=== PATIENT | male | born 1970 | race Caucasian/White ===

== ENCOUNTER 2021-12-12 11:28 | Day surgery (SDC) | payer OTHER ==
[2021-12-12] MEDS ORDERED: Sodium Chloride 0.9% 10 ML FLUSH Syringe IJ ONE (11:29)
[2021-12-12] MEDS ORDERED: Depo-Medrol 40 MG/ML IM ONE (11:29)
[2021-12-12] MEDS ORDERED: Lactated Ringers 1,000 ML IV ONE (15:43)
[2021-12-12] MEDS ORDERED: DIPRIVAN 200 MG/20 ML IV ONE (15:58)
--- NOTE | 2021-12-12 16:50 | XRAY ---
Indication: Right L4-S1 transforaminal ELISA. Intraoperative fluoroscopy provided for 39 seconds. 4 digital spot image submitted for interpretation demonstrates posterior needle tips projecting over the right L4 and L5 nerve roots. Small amount of contrast injected for needle tip placement. Correlate with intraoperative findings/report.
--- NOTE | 2021-12-12 16:54 | XRAY ---
39 seconds fluoroscopy time in surgery for right L4-S1 transforaminal ELISA.
== END 2021-12-12 16:30 | disposition home or self-care (01) ==
LOC: SDC-PAIN 11:28
PROVIDERS: ATTEND Psychiatry & Neurology Pain Medicine
DX: M54.16 Radiculopathy, lumbar region (principal); Z79.899 Other long term (current) drug therapy
CPT/HCPCS: 64493; 64494; 72100; 77003; J1030; J2704; Q9966

== ENCOUNTER 2022-01-16 08:44 | Day surgery (SDC) | payer OTHER ==
[2022-01-16] MEDS ORDERED: Xylocaine 1% Vial 30 ML PF IJ ONE (08:45)
[2022-01-16] MEDS ORDERED: Decadron 4 MG INJ IV ONE (08:45)
[2022-01-16] MEDS ORDERED: DIPRIVAN 200 MG/20 ML IV ONE ×2 (10:07→10:18)
[2022-01-16] MEDS ORDERED: Lactated Ringers 1,000 ML IV ONE (10:36)
--- NOTE | 2022-01-16 12:09 | XRAY ---
Indication: Right piriformis muscle injection. Intraoperative fluoroscopy provided for 22 seconds. Single digital spot image submitted for interpretation demonstrates posterior needle tip projecting over the expected right piriformis muscle. Small amount of contrast injected for needle tip placement. Correlate with intraoperative findings/report.
--- NOTE | 2022-01-16 12:21 | XRAY ---
22 seconds fluoroscopy time in surgery for injection of the right piriformis muscle.
== END 2022-01-16 10:34 | disposition home or self-care (01) ==
LOC: SDC-PAIN 08:44
PROVIDERS: ATTEND Psychiatry & Neurology Pain Medicine
DX: M79.18 Myalgia, other site (principal); Z79.899 Other long term (current) drug therapy
CPT/HCPCS: 20552; 72020; 77002; J1100; J2001; J2704; Q9966

== ENCOUNTER 2022-02-13 12:35 | Day surgery (SDC) | payer OTHER ==
[2022-02-13] MEDS ORDERED: Sodium Chloride 0.9(Preservative Free) 10 ML IJ ONE (12:36)
[2022-02-13] MEDS ORDERED: Xylocaine 1% Vial 30 ML PF IJ ONE (12:36)
[2022-02-13] MEDS ORDERED: Decadron 4 MG INJ IV ONE (12:36)
[2022-02-13] MEDS ORDERED: Depo-Medrol 40 MG/ML IM ONE (12:36)
[2022-02-13] MEDS ORDERED: Lactated Ringers 1,000 ML IV ONE (15:26)
[2022-02-13] MEDS ORDERED: DIPRIVAN 200 MG/20 ML IV ONE ×2 (15:32→15:39)
--- NOTE | 2022-02-13 16:46 | XRAY ---
Indication: Right L4-S1 transforaminal ELISA. Intraoperative fluoroscopy provided for 29 seconds. 3 digital spot images submitted for interpretation demonstrates posterior needle tips projecting over the expected right L4 and L5 nerve roots. Small amount of contrast injected for needle tip placement. Correlate with intraoperative findings/report.
--- NOTE | 2022-02-13 17:01 | XRAY ---
18 seconds fluoroscopy time in surgery for injection of the right piriformis muscle.
--- NOTE | 2022-02-13 17:02 | XRAY ---
29 seconds fluoroscopy time in surgery for right L4-S1 transforaminal ELISA.
--- NOTE | 2022-02-13 20:01 | XRAY ---
Indication: Right piriformis injection. Intraoperative fluoroscopy provided for 18 seconds. Single digital spot image submitted for interpretation demonstrates posterior needle tip projecting over the expected right piriformis muscle. Small amount of contrast injected for needle tip placement. Correlate with intraoperative findings/report.
== END 2022-02-13 15:59 | disposition home or self-care (01) ==
LOC: SDC-PAIN 12:35
PROVIDERS: ATTEND Psychiatry & Neurology Pain Medicine
DX: M54.16 Radiculopathy, lumbar region (principal); M79.18 Myalgia, other site; Z79.899 Other long term (current) drug therapy
CPT/HCPCS: 20552; 64483; 64484; 72020; 72100; 77002; 77003; J1030; J1100; J2001; J2704; Q9966

== ENCOUNTER 2022-10-23 06:41 | Day surgery (SDC) | payer MEDICAID ==
[2022-10-23] MEDS ORDERED: LIDOCAINE HCL 2% 100 MG/5 ML IJ ONE (06:42)
[2022-10-23] MEDS ORDERED: DUONEB 0.5-3 MG/3 ml Neb IH ONE ×2 (07:52→07:55)
[2022-10-23 08:01] VITALS: PULSE 85; O2SAT 98
[2022-10-23] MEDS ORDERED: Versed 2 MG/2 ML Injection ONE (08:49)
--- NOTE | 2022-10-23 10:48 | XRAY ---
Indication: Bilateral L4-S1 MBB. Intraoperative fluoroscopy provided for 22 seconds. Single digital spot image submitted for interpretation demonstrates posterior needle tips projecting over the expected left and right L4-S1 nerve roots. Correlate with intraoperative findings/report.
[2022-10-23] MEDS ORDERED: Lactated Ringers 1,000 ML IV ONE (10:49)
--- NOTE | 2022-10-23 10:58 | XRAY ---
22 seconds of fluoroscopy was used in surgery for a bilateral L4-S1 MBB.
== END 2022-10-23 09:08 | disposition home or self-care (01) ==
LOC: SDC-PAIN 06:41
PROVIDERS: ATTEND Psychiatry & Neurology Pain Medicine
DX: M47.816 Spondylosis without myelopathy or radiculopathy, lumbar region (principal); Z79.899 Other long term (current) drug therapy
CPT/HCPCS: 64493; 64494; 72020; 77002; 82947; 94640; J2250; A9270-GY

== ENCOUNTER 2023-01-22 07:34 | Day surgery (SDC) | payer MEDICAID ==
[2023-01-22] MEDS ORDERED: BUPIVACAINE 0.5% VIAL IJ ONE (07:35)
[2023-01-22] MEDS ORDERED: Depo-Medrol 40 MG/ML IM ONE (07:35)
[2023-01-22] MEDS ORDERED: DIPRIVAN 200 MG/20 ML IV ONE (08:38)
[2023-01-22] MEDS ORDERED: Versed 2 MG/2 ML Injection ONE (08:42)
--- NOTE | 2023-01-22 09:43 | XRAY ---
Indication: Bilateral L4-S1 MBB. Intraoperative fluoroscopy provided for 12 seconds. Single digital spot image submitted for interpretation demonstrates posterior needle tips projecting over the expected left and right L4-S1 nerve roots. Correlate with intraoperative findings/report.
--- NOTE | 2023-01-22 09:49 | XRAY ---
12 seconds of fluoroscopy was used in surgery for a bilateral L4-S1 MBB.
[2023-01-22] MEDS ORDERED: Lactated Ringers 1,000 ML IV ONE (12:24)
== END 2023-01-22 09:05 | disposition home or self-care (01) ==
LOC: SDC-PAIN 07:34
PROVIDERS: ATTEND Psychiatry & Neurology Pain Medicine
DX: M47.816 Spondylosis without myelopathy or radiculopathy, lumbar region (principal); Z79.899 Other long term (current) drug therapy
CPT/HCPCS: 64493; 64494; 72020; 77002; 82947; J1030; J2250; J2704

== ENCOUNTER 2023-04-23 08:59 | Day surgery (SDC) | payer OTHER ==
[2023-04-23] MEDS ORDERED: BUPIVACAINE 0.5% VIAL IJ ONE (09:00)
[2023-04-23] MEDS ORDERED: Depo-Medrol 40 MG/ML IM ONE (09:00)
[2023-04-23] MEDS ORDERED: LIDOCAINE HCL 1% 50 MG/5 ML VL PF IJ ONE (09:00)
[2023-04-23] MEDS ORDERED: DIPRIVAN 200 MG/20 ML IV ONE ×2 (10:39→10:45)
[2023-04-23] MEDS ORDERED: Lactated Ringers 1,000 ML IV ONE (14:28)
--- NOTE | 2023-04-23 19:12 | XRAY ---
Indication: Right L4-S1 RFA. Intraoperative fluoroscopy provided for 20 seconds. 5 digital spot image submitted for interpretation demonstrates posterior needle tips projecting over the expected right L4-S1 nerve roots. Correlate with intraoperative findings/report.
--- NOTE | 2023-04-23 19:25 | XRAY ---
20 seconds of fluoroscopy was used in surgery for a right L4-S1 RFA.
== END 2023-04-23 11:10 | disposition home or self-care (01) ==
LOC: SDC-PAIN 08:59
PROVIDERS: ATTEND Psychiatry & Neurology Pain Medicine
DX: M47.816 Spondylosis without myelopathy or radiculopathy, lumbar region (principal); Z79.899 Other long term (current) drug therapy
CPT/HCPCS: 64635; 64636; 72100; 77002; 82947; J1030; J2001; J2704

== ENCOUNTER 2023-04-30 09:07 | Day surgery (SDC) | payer OTHER ==
[2023-04-30] MEDS ORDERED: Depo-Medrol 40 MG/ML IM ONE (09:08)
[2023-04-30] MEDS ORDERED: LIDOCAINE HCL 1% 50 MG/5 ML VL PF IJ ONE (09:08)
[2023-04-30] MEDS ORDERED: BUPIVACAINE 0.5% VIAL IJ ONE (09:08)
[2023-04-30] MEDS ORDERED: DIPRIVAN 200 MG/20 ML IV ONE ×2 (11:00→11:03)
--- NOTE | 2023-04-30 11:45 | XRAY ---
Indication: Left L4-S1 RFA. Intraoperative fluoroscopy provided for 24 seconds. 4 digital spot image submitted for interpretation demonstrates posterior needle tips projecting over the expected left L4-S1 nerve roots. Correlate with intraoperative findings/report.
--- NOTE | 2023-04-30 13:36 | XRAY ---
24 seconds of fluoroscopy was used in surgery for a left L4-S1 RFA.
[2023-04-30] MEDS ORDERED: Lactated Ringers 1,000 ML IV ONE (15:43)
== END 2023-04-30 11:32 | disposition home or self-care (01) ==
LOC: SDC-PAIN 09:07
PROVIDERS: ATTEND Psychiatry & Neurology Pain Medicine
DX: M47.816 Spondylosis without myelopathy or radiculopathy, lumbar region (principal); Z79.899 Other long term (current) drug therapy
CPT/HCPCS: 64635; 64636; 72100; 77002; 82947; J1030; J2001; J2704